=== PATIENT | female | born 2000 | race Caucasian/White ===

== ENCOUNTER 2020-06-02 15:07 | Emergency (ER) | payer MEDICAID ==
[~2020-06-02] VITALS: Ht 180.3 cm; Wt 104.3 kg
--- NOTE | 2020-06-02 17:04 | NUR ---
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
--- NOTE | 2020-06-02 18:25 | NUR ---
pt taken to US
[2020-06-02] MEDS ORDERED: SODIUM CHLORIDE 0.9% 1,000ML IVBOLUS ONE (18:30)
[2020-06-02] MEDS ORDERED: SODIUM CHLORIDE FLUSH 10ML SYR IVF ONE (18:30)
[2020-06-02 19:37] LABS: BASOPHILS % (AUTO) 1 % (0-1); EOSINOPHILS % (AUTO) 1 % (1-7); LYMPHOCYTES % (AUTO) 29 % (22-44); MEAN CORPUSCULAR HEMOGLOBIN 27.2 pg (27.0-34.8); MEAN CORPUSCULAR HGB CONC 33.9 g/dL (32.4-35.8); MEAN PLATELET VOLUME 9.3 fL (7.4-10.4); MONOCYTES % (AUTO) 5 % (2-9); NEUTROPHILS % (AUTO) 64 % (42-75); PLATELET COUNT 215 x10^3/uL (130-400); RED BLOOD COUNT 4.27 x10^6/uL (3.82-5.3); RED CELL DISTRIBUTION WIDTH 14.9 % (9.6-15.2)
[2020-06-02 19:38] LABS: MD NO
[2020-06-02 19:48] LABS: ALBUMIN 3.4 g/dL (3.4-5.0); ANION GAP 7 mmol/L (5-15); CHLORIDE 110 mmol/L (98-107); CREATININE 0.87 mg/dL (0.55-1.02)
[2020-06-02 19:55] VITALS: BP 102/75
== END 2020-06-02 21:32 | disposition home or self-care (01) ==
LOC: ED 15:37
DX: N93.8 Other specified abnormal uterine and vaginal bleeding (principal); R06.02 Shortness of breath; R11.2 Nausea with vomiting, unspecified; R53.1 Weakness; R10.9 Unspecified abdominal pain; R42 Dizziness and giddiness
CPT/HCPCS: 36415; 71045; 76830; 80048; 82040; 84443; 84703; 85025; 93005; 96360; 99285; J7030